=== PATIENT | male | born 1925 | race Caucasian/White ===

== ENCOUNTER 2016-10-15 21:22 | Emergency (ER) | payer MEDICARE, BC ==
--- NOTE | 2016-10-15 21:42 | ED ---
General Adult HPI - General Chief complaint: Chest Pain Stated complaint: Chest Pain Time Seen by Provider: 10/15/16 21:27 Source: patient, family, RN notes reviewed, old records reviewed Mode of arrival: wheelchair Limitations: no limitations - History of Present Illness Initial comments: This is an 89-year-old male the ER for evaluation. Patient presents here for evaluation of chest pain. Patient had just male sitting in a chair but more so just little discomfort, symptoms also resolved we did take his blood pressure nauseous blood pressure was little elevated, patient does admit to mild anxiety. Patient does have significant coronary artery disease, symptoms resolved raking the ER for evaluation, states he wanted an EKG, patient states he does not want his other testing and blood work. At this time patient is without chest pain no shortness breath no cough or congestion. - Related Data Home Medications Medication Instructions Recorded Confirmed ALPRAZolam [Xanax] 0.5 mg PO BID PRN 07/07/16 10/15/16 Allopurinol 100 mg PO DAILY 07/07/16 10/15/16 Clopidogrel Bisulfate [Plavix] 75 mg PO DAILY 07/07/16 10/15/16 Lisinopril 10 mg PO DAILY 07/07/16 10/15/16 Nitroglycerin Sl Tabs [Nitrostat] 0.4 mg SUBLINGUAL Q5M PRN 08/31/16 10/15/16 Aspirin/Sod Bicarb/Citric Acid 2 tab PO Q4H PRN 10/15/16 10/15/16 [[place] Original Tab Eff] Gabapentin [Neurontin] 600 mg PO Q4H 10/15/16 10/15/16 Allergies Allergy/AdvReac Type Severity Reaction Status Date / Time No Known Allergies Allergy Verified 10/15/16 22:00 Review of Systems ROS Statement: Those systems with pertinent positive or pertinent negative responses have been documented in the HPI. ROS Other: All systems not noted in ROS Statement are negative. Past Medical History Past Medical History: Coronary Artery Disease (CAD), Cancer, Chest Pain / Angina , Eye Disorder, Hearing Disorder / Deafness, Hyperlipidemia, Hypertension Additional Past Medical History / Comment(s): HX PROSTATE CA 1995; MELANOMA SKIN. HX DETACHED RETINA'S CANDI. CANDI GLAUCOMA. GOUT. 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 CMP; HAS DEPLETED GENERATOR IN PACEMAKER, [employer]. History of Any Multi-Drug Resistant Organisms: None Reported Past Surgical History: Coronary Bypass/CABG, Heart Catheterization With Stent, Hernia Repair, Pacemaker, Prostate Surgery Additional Past Surgical History / Comment(s): RT CAROTID ARTERY OR. TRIPLE BYPASS 1994. STENTS X4, DONE 2 AT A TIME. REPAIR AORTIC ANEURYSM 2004. Past Anesthesia/Blood Transfusion Reactions: No Reported Reaction Date of Last Stent Placement:: 2004 Type of Cardiac Device: Permanent Pacemaker Device Placement Date:: 2005 Past Psychological History: Anxiety Additional Psychological History / Comment(s): OCC Smoking Status: Former smoker Past Alcohol Use History: None Reported Additional Past Alcohol Use History / Comment(s): SMOKED 30 YEARS, <1PPD, QUIT 1981. Past Drug Use History: None Reported - Past Family History Mother Family Medical History: Cancer Sister(s) Family Medical History: Cancer General Exam Limitations: no limitations General appearance: alert, in no apparent distress Head exam: Present: atraumatic, normocephalic, normal inspection Eye exam: Present: normal appearance, PERRL, EOMI. Absent: scleral icterus, conjunctival injection, periorbital swelling ENT exam: Present: normal exam, mucous membranes moist Neck exam: Present: normal inspection. Absent: tenderness, meningismus, lymphadenopathy Respiratory exam: Present: normal lung sounds bilaterally. Absent: respiratory distress, wheezes, rales, rhonchi, stridor Cardiovascular Exam: Present: regular rate, normal rhythm, normal heart sounds. Absent: systolic murmur, diastolic murmur, rubs, gallop, clicks GI/Abdominal exam: Present: soft, normal bowel sounds. Absent: distended, tenderness, guarding, rebound, rigid Extremities exam: Present: normal inspection, full ROM, normal capillary refill. Absent: tenderness, pedal edema, joint swelling, calf tenderness Back exam: Present: normal inspection Neurological exam: Present: alert, oriented X3, CN II-XII intact Psychiatric exam: Present: normal affect, normal mood Skin exam: Present: warm, dry, intact, normal color. 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 Symptoms all resolved, patient encouraged to stay in hospital for cardiac observation, patient refusing says he feels fine and wants to go home. Patient understands risks of going home, - Lab Data Result diagrams: 10/15/16 22:05 10/15/16 22:05 Lab Results 10/15/16 10/15/16 10/15/16 Range/Units 22:05 22:05 22:05 WBC 5.0 (3.8-10.6) k/uL RBC 4.09 L (4.30-5.90) m/uL Hgb 12.3 L (13.0-17.5) gm/dL Hct 37.8 L (39.0-53.0) % MCV 92.5 (80.0-100.0) fL MCH 30.2 (25.0-35.0) pg MCHC 32.6 (31.0-37.0) g/dL RDW 13.6 (11.5-15.5) % Plt Count 155 (150-450) k/uL Neutrophils % 61 % Lymphocytes % 25 % Monocytes % 8 % Eosinophils % 3 % Basophils % 1 % Neutrophils # 3.0 (1.3-7.7) k/uL Lymphocytes # 1.3 (1.0-4.8) k/uL Monocytes # 0.4 (0-1.0) k/uL Eosinophils # 0.2 (0-0.7) k/uL Basophils # 0.0 (0-0.2) k/uL PT (9.0-12.0) sec INR (<1.1) APTT (22.0-30.0) sec Sodium 147 H (137-145) mmol/L Potassium 4.5 (3.5-5.1) mmol/L Chloride 108 H (98-107) mmol/L Carbon Dioxide 27 (22-30) mmol/L Anion Gap 12 mmol/L BUN 49 H (9-20) mg/dL Creatinine 1.76 H (0.66-1.25) mg/dL Est GFR (MDRD) Af Amer 44 (>60 ml/min/1.73 sqM) Est GFR (MDRD) Non-Af 37 (>60 ml/min/1.73 sqM) Glucose 95 (74-99) mg/dL Calcium 9.4 (8.4-10.2) mg/dL Magnesium 1.7 (1.6-2.3) mg/dL Total Bilirubin 0.4 (0.2-1.3) mg/dL AST 15 L (17-59) U/L ALT 21 (21-72) U/L Alkaline Phosphatase 48 (38-126) U/L Total Creatine Kinase 40 L (55-170) U/L CK-MB (CK-2) 1.7 (0.0-2.4) ng/mL CK-MB (CK-2) Rel Index 4.3 Troponin I <0.012 (0.000-0.034) ng/mL NT-Pro-B Natriuret Pep pg/mL Total Protein 7.0 (6.3-8.2) g/dL Albumin 4.0 (3.5-5.0) g/dL Lipase 140 (23-300) U/L 10/15/16 10/15/16 Range/Units 22:05 22:05 WBC (3.8-10.6) k/uL RBC (4.30-5.90) m/uL Hgb (13.0-17.5) gm/dL Hct (39.0-53.0) % MCV (80.0-100.0) fL MCH (25.0-35.0) pg MCHC (31.0-37.0) g/dL RDW (11.5-15.5) % Plt Count (150-450) k/uL Neutrophils % % Lymphocytes % % Monocytes % % Eosinophils % % Basophils % % Neutrophils # (1.3-7.7) k/uL Lymphocytes # (1.0-4.8) k/uL Monocytes # (0-1.0) k/uL Eosinophils # (0-0.7) k/uL Basophils # (0-0.2) k/uL PT 10.8 (9.0-12.0) sec INR 1.1 (<1.1) APTT 23.1 (22.0-30.0) sec Sodium (137-145) mmol/L Potassium (3.5-5.1) mmol/L Chloride (98-107) mmol/L Carbon Dioxide (22-30) mmol/L Anion Gap mmol/L BUN (9-20) mg/dL Creatinine (0.66-1.25) mg/dL Est GFR (MDRD) Af Amer (>60 ml/min/1.73 sqM) Est GFR (MDRD) Non-Af (>60 ml/min/1.73 sqM) Glucose (74-99) mg/dL Calcium (8.4-10.2) mg/dL Magnesium (1.6-2.3) mg/dL Total Bilirubin (0.2-1.3) mg/dL AST (17-59) U/L ALT (21-72) U/L Alkaline Phosphatase (38-126) U/L Total Creatine Kinase (55-170) U/L CK-MB (CK-2) (0.0-2.4) ng/mL CK-MB (CK-2) Rel Index Troponin I (0.000-0.034) ng/mL NT-Pro-B Natriuret Pep 289 pg/mL Total Protein (6.3-8.2) g/dL Albumin (3.5-5.0) g/dL Lipase (23-300) U/L - Radiology Data Radiology results: report reviewed (Chest x-ray 2 view negative for acute disease), image reviewed Disposition Clinical Impression: Chest pain, Atypical chest pain Disposition: HOME SELF-CARE Condition: Good Instructions: Chest Pain (ED) Referrals: Wilber Ervin MD [Primary Care Provider] - 1-2 days
[2016-10-15 22:15] LABS: Basophils % (A) 1 %; CH 31.7; CHCM 34.4; Eosinophils # (A) 0.2 k/uL (0-0.7); Eosinophils % (A) 3 %; HCT 37.8 % (39.0-53.0); HDW 2.85; HGB 12.3 gm/dL (13.0-17.5); Luc % (Auto) 2; Lymphocytes # (A) 1.3 k/uL (1.0-4.8); Lymphocytes % (A) 25 %; MCH 30.2 pg (25.0-35.0); MCHC 32.6 g/dL (31.0-37.0); MCV 92.5 fL (80.0-100.0); Mean Platelet Volume 8.1; Monocytes # (A) 0.4 k/uL (0-1.0); Monocytes % (A) 8 %; Neutrophils % (A) 61 %; RBC 4.09 m/uL (4.30-5.90); RDW 13.6 % (11.5-15.5); WBC (Perox) 5.04
[2016-10-15 22:24] LABS: INR 1.1 (<1.1); Partial Thromboplastin Time 23.1 sec (22.0-30.0); Prothrombin Time 10.8 sec (9.0-12.0)
[2016-10-15 22:30] LABS: Calcium 9.4 mg/dL (8.4-10.2); Magnesium 1.7 mg/dL (1.6-2.3); Potassium 4.5 mmol/L (3.5-5.1); Total Bilirubin 0.4 mg/dL (0.2-1.3)
[2016-10-15 22:34] LABS: Creatine Kinase 40 U/L (55-170)
[2016-10-15 22:47] LABS: Creatine Kinase MB 1.7 ng/mL (0.0-2.4); Troponin I <0.012 ng/mL (0.000-0.034)
--- NOTE | 2016-10-15 23:03 | XR ---
EXAMINATION TYPE: XR chest 2V DATE OF EXAM: 10/15/2016 10:18 PM COMPARISON: 07/07/2016 HISTORY: Chest pain TECHNIQUE: Frontal and lateral views of the chest are obtained. FINDINGS: There is no focal air space opacity, pleural effusion, or pneumothorax seen. Heart is not enlarged. Thoracic aorta is tortuous and ectatic with aneurysmal dilatation with atheros clerotic calcification without significant change. Left-sided pacemaker and postsurgical changes of s ternotomy are noted. Mild to moderate degenerative arthritic changes are present in the thoracic spine with endplate spond ylosis with old mild wedge compression deformities of lower thoracic vertebrae. IMPRESSION: 1. No active pulmonary infiltrates. 2. No significant interval change. 3. 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 Sternotomy and pacemaker.
[2016-10-15 23:48] VITALS: BP 177/93; PULSE 73; RESP 18; TEMP 98.7
== END 2016-10-15 23:48 | disposition home or self-care (01) ==
LOC: EC 21:22
DX: R07.89 Other chest pain (principal); I10 Essential (primary) hypertension; I25.10 Atherosclerotic heart disease of native coronary artery without angina pectoris; M10.9 Gout, unspecified; H91.90 Unspecified hearing loss, unspecified ear; G62.9 Polyneuropathy, unspecified; Z79.02 Long term (current) use of antithrombotics/antiplatelets; Z87.891 Personal history of nicotine dependence; Z79.899 Other long term (current) drug therapy; Z95.0 Presence of cardiac pacemaker; Z95.1 Presence of aortocoronary bypass graft; Z95.5 Presence of coronary angioplasty implant and graft
CPT/HCPCS: 36415; 71020; 80051; 80053; 82550; 82553; 82565; 83690; 83735; 83880; 84484; 84520; 85025; 85610; 85730; 93005; 99285

== ENCOUNTER 2016-10-18 19:02 | Emergency (ER) | payer MEDICARE, BC ==
[2016-10-18 19:14] VITALS: RESP 18
[2016-10-18] MEDS ORDERED: LORazepam 2 MG/ML SYRINGE IV STA (19:22)
[2016-10-18] MEDS ORDERED: LABETALOL SYRINGE 5 MG/ML IVP STA (19:22)
--- NOTE | 2016-10-18 19:23 | ED ---
General Adult HPI - General Chief complaint: Chest Pain Stated complaint: HTN Time Seen by Provider: 10/18/16 19:08 Source: patient, RN notes reviewed, old records reviewed Mode of arrival: ambulatory Limitations: no limitations - History of Present Illness Initial comments: This is a 11-year-old male here for evaluation of chest pain. Patient has medical history is significant for coronary disease, multiple medical comorbidities. I and heart disease. Patient coming in for evaluation of chest pain started in her right afternoon and lasted for a few seconds and then resolve. Patient not specifically concerned about pain B[place]ill numbers were. Patient's no nausea vomiting, no with antiacids. No significant shortness of breath. Patient did not take anything for the pain, no nitro. Patient has again no fevers workup congestion, no recent travel history. Patient remains without chest pain at this time - Related Data Home Medications Medication Instructions Recorded Confirmed ALPRAZolam [Xanax] 0.5 mg PO BID PRN 07/07/16 10/18/16 Allopurinol 100 mg PO DAILY 07/07/16 10/18/16 Clopidogrel Bisulfate [Plavix] 75 mg PO DAILY 07/07/16 10/18/16 Lisinopril 10 mg PO DAILY 07/07/16 10/18/16 Nitroglycerin Sl Tabs [Nitrostat] 0.4 mg SUBLINGUAL Q5M PRN 08/31/16 10/18/16 Gabapentin [Neurontin] 600 mg PO Q4H 10/15/16 10/18/16 Allergies Allergy/AdvReac Type Severity Reaction Status Date / Time No Known Allergies Allergy Verified 10/18/16 19:14 Review of Systems ROS Statement: Those systems with pertinent positive or pertinent negative responses have been documented in the HPI. ROS Other: All systems not noted in ROS Statement are negative. Past Medical History Past Medical History: Coronary Artery Disease (CAD), Cancer, Chest Pain / Angina , Eye Disorder, Hearing Disorder / Deafness, Hyperlipidemia, Hypertension Additional Past Medical History / Comment(s): HX PROSTATE CA 1995; MELANOMA SKIN. HX DETACHED RETINA'S CANDI. CANDI GLAUCOMA. GOUT. 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 CMP; HAS DEPLETED GENERATOR IN PACEMAKER, [employer]. History of Any Multi-Drug Resistant Organisms: None Reported Past Surgical History: Coronary Bypass/CABG, Heart Catheterization With Stent, Hernia Repair, Pacemaker, Prostate Surgery Additional Past Surgical History / Comment(s): RT CAROTID ARTERY OR. TRIPLE BYPASS 1994. STENTS X4, DONE 2 AT A TIME. REPAIR AORTIC ANEURYSM 2004. Past Anesthesia/Blood Transfusion Reactions: No Reported Reaction Date of Last Stent Placement:: 2004 Type of Cardiac Device: Permanent Pacemaker Device Placement Date:: 2005 Past Psychological History: Anxiety Additional Psychological History / Comment(s): OCC Smoking Status: Former smoker Past Alcohol Use History: None Reported Additional Past Alcohol Use History / Comment(s): SMOKED 30 YEARS, <1PPD, QUIT 1981. Past Drug Use History: None Reported - Past Family History Mother Family Medical History: Cancer Sister(s) Family Medical History: Cancer General Exam Limitations: no limitations General appearance: alert, in no apparent distress Head exam: Present: atraumatic, normocephalic, normal inspection Eye exam: Present: normal appearance, PERRL, EOMI. Absent: scleral icterus, conjunctival injection, periorbital swelling ENT exam: Present: normal exam, mucous membranes moist Neck exam: Present: normal inspection. Absent: tenderness, meningismus, lymphadenopathy Respiratory exam: Present: normal lung sounds bilaterally. Absent: respiratory distress, wheezes, rales, rhonchi, stridor Cardiovascular Exam: Present: regular rate, normal rhythm, normal heart sounds. Absent: systolic murmur, diastolic murmur, rubs, gallop, clicks GI/Abdominal exam: Present: soft, normal bowel sounds. Absent: distended, tenderness, guarding, rebound, rigid Extremities exam: Present: normal inspection, full ROM, normal capillary refill. Absent: tenderness, pedal edema, joint swelling, calf tenderness Back exam: Present: normal inspection Neurological exam: Present: alert, oriented X3, CN II-XII intact Psychiatric exam: Present: normal affect, normal mood Skin exam: Present: warm, dry, intact, normal color. Absent: rash Course Vital Signs 10/18/16 10/18/16 10/18/16 19:11 20:14 20:25 Temperature 98.6 F 98.7 F Pulse Rate 60 65 62 Respiratory 18 18 18 Rate Blood Pressure 223/91 201/85 145/65 O2 Sat by Pulse 97 97 98 Oximetry 10/18/16 21:09 Temperature 98 F Pulse Rate 69 Respiratory 18 Rate Blood Pressure 123/71 O2 Sat by Pulse 97 Oximetry EKG Findings - EKG Comments: EKG Findings:: EKG shows paced rhythm rate of 60, pO2 30, QRS 94, QTC 400 Medical Decision Making - Medical Decision Making In eye male here for evaluation of chest pain, patient's chest pain is atypical in nature and resolved, patient states he feels good feels better like to be discharged home. - Lab Data Result diagrams: 10/18/16 19:18 10/18/16 19:18 Lab Results 10/18/16 10/18/16 10/18/16 Range/Units 19:18 19:18 19:18 WBC 4.7 (3.8-10.6) k/uL RBC 4.00 L (4.30-5.90) m/uL Hgb 12.4 L (13.0-17.5) gm/dL Hct 38.1 L (39.0-53.0) % MCV 95.1 (80.0-100.0) fL MCH 31.0 (25.0-35.0) pg MCHC 32.6 (31.0-37.0) g/dL RDW 13.6 (11.5-15.5) % Plt Count 157 (150-450) k/uL Neutrophils % 62 % Lymphocytes % 24 % Monocytes % 8 % Eosinophils % 3 % Basophils % 0 % Neutrophils # 3.0 (1.3-7.7) k/uL Lymphocytes # 1.2 (1.0-4.8) k/uL Monocytes # 0.4 (0-1.0) k/uL Eosinophils # 0.1 (0-0.7) k/uL Basophils # 0.0 (0-0.2) k/uL PT (9.0-12.0) sec INR (<1.1) APTT (22.0-30.0) sec Sodium 145 (137-145) mmol/L Potassium 5.1 (3.5-5.1) mmol/L Chloride 106 (98-107) mmol/L Carbon Dioxide 27 (22-30) mmol/L Anion Gap 12 mmol/L BUN 40 H (9-20) mg/dL Creatinine 1.87 H (0.66-1.25) mg/dL Est GFR (MDRD) Af Amer 41 (>60 ml/min/1.73 sqM) Est GFR (MDRD) Non-Af 34 (>60 ml/min/1.73 sqM) Glucose 106 H (74-99) mg/dL Calcium 9.5 (8.4-10.2) mg/dL Magnesium 1.7 (1.6-2.3) mg/dL Total Bilirubin 0.4 (0.2-1.3) mg/dL AST 18 (17-59) U/L ALT 24 (21-72) U/L Alkaline Phosphatase 52 (38-126) U/L Total Creatine Kinase 40 L (55-170) U/L CK-MB (CK-2) 1.4 (0.0-2.4) ng/mL CK-MB (CK-2) Rel Index 3.5 Troponin I <0.012 (0.000-0.034) ng/mL NT-Pro-B Natriuret Pep pg/mL Total Protein 7.1 (6.3-8.2) g/dL Albumin 4.0 (3.5-5.0) g/dL Lipase 125 (23-300) U/L 10/18/16 10/18/16 Range/Units 19:18 19:18 WBC (3.8-10.6) k/uL RBC (4.30-5.90) m/uL Hgb (13.0-17.5) gm/dL Hct (39.0-53.0) % MCV (80.0-100.0) fL MCH (25.0-35.0) pg MCHC (31.0-37.0) g/dL RDW (11.5-15.5) % Plt Count (150-450) k/uL Neutrophils % % Lymphocytes % % Monocytes % % Eosinophils % % Basophils % % Neutrophils # (1.3-7.7) k/uL Lymphocytes # (1.0-4.8) k/uL Monocytes # (0-1.0) k/uL Eosinophils # (0-0.7) k/uL Basophils # (0-0.2) k/uL PT 10.8 (9.0-12.0) sec INR 1.1 (<1.1) APTT 22.8 (22.0-30.0) sec Sodium (137-145) mmol/L Potassium (3.5-5.1) mmol/L Chloride (98-107) mmol/L Carbon Dioxide (22-30) mmol/L Anion Gap mmol/L BUN (9-20) mg/dL Creatinine (0.66-1.25) mg/dL Est GFR (MDRD) Af Amer (>60 ml/min/1.73 sqM) Est GFR (MDRD) Non-Af (>60 ml/min/1.73 sqM) Glucose (74-99) mg/dL Calcium (8.4-10.2) mg/dL Magnesium (1.6-2.3) mg/dL Total Bilirubin (0.2-1.3) mg/dL AST (17-59) U/L ALT (21-72) U/L Alkaline Phosphatase (38-126) U/L Total Creatine Kinase (55-170) U/L CK-MB (CK-2) (0.0-2.4) ng/mL CK-MB (CK-2) Rel Index Troponin I (0.000-0.034) ng/mL NT-Pro-B Natriuret Pep 228 pg/mL Total Protein (6.3-8.2) g/dL Albumin (3.5-5.0) g/dL Lipase (23-300) U/L - Radiology Data Radiology results: report reviewed (Chest x-ray 2 view negative for acute disease), image reviewed Disposition Clinical Impression: Chest pain, Atypical chest pain Disposition: HOME SELF-CARE Condition: Good Instructions: Costochondritis (ED), Chest Pain (ED) Referrals: Wilber Ervin MD [Primary Care Provider] - 1-2 days
[2016-10-18 19:29] LABS: Basophils % (A) 0 %; CHCM 33.8; Eosinophils # (A) 0.1 k/uL (0-0.7); Eosinophils % (A) 3 %; HCT 38.1 % (39.0-53.0); HDW 2.76; HGB 12.4 gm/dL (13.0-17.5); Luc # (Auto) 0.11; Luc % (Auto) 2; Lymphocytes # (A) 1.2 k/uL (1.0-4.8); Lymphocytes % (A) 24 %; MCHC 32.6 g/dL (31.0-37.0); MCV 95.1 fL (80.0-100.0); Mean Platelet Volume 8.3; Monocytes # (A) 0.4 k/uL (0-1.0); Monocytes % (A) 8 %; Neutrophils % (A) 62 %; RDW 13.6 % (11.5-15.5); WBC 4.7 k/uL (3.8-10.6); WBC (Perox) 4.67
[2016-10-18 19:39] LABS: Calcium 9.5 mg/dL (8.4-10.2); Magnesium 1.7 mg/dL (1.6-2.3); Potassium 5.1 mmol/L (3.5-5.1); Total Bilirubin 0.4 mg/dL (0.2-1.3); Total Protein 7.1 g/dL (6.3-8.2)
[2016-10-18 19:48] LABS: Creatine Kinase 40 U/L (55-170)
--- NOTE | 2016-10-18 19:55 | XR ---
EXAMINATION TYPE: XR chest 2V DATE OF EXAM: 10/18/2016 7:50 PM COMPARISON: 10/15/2016 HISTORY: Chest pain TECHNIQUE: Frontal and lateral views of the chest are obtained. FINDINGS: There is no heart failure nor confluent pneumonic infiltrate. Thoracic aorta is atheromato us. There is a left axillary pacemaker with the lead tips in the right ventricle. There are sternal w ires. There are chest leads. There is no sign of pleural effusion. Bony thorax is intact. IMPRESSION: Atheromatous aorta. No active cardiopulmonary disease. No change.
[2016-10-18 20:01] LABS: Creatine Kinase MB 1.4 ng/mL (0.0-2.4); Troponin I <0.012 ng/mL (0.000-0.034)
[2016-10-18 20:08] LABS: INR 1.1 (<1.1); Partial Thromboplastin Time 22.8 sec (22.0-30.0); Prothrombin Time 10.8 sec (9.0-12.0)
[2016-10-18 21:10] VITALS: BP 123/71; PULSE 69; TEMP 98
== END 2016-10-18 21:12 | disposition home or self-care (01) ==
LOC: EC 19:02
DX: R07.89 Other chest pain (principal); I10 Essential (primary) hypertension; I25.10 Atherosclerotic heart disease of native coronary artery without angina pectoris; F41.9 Anxiety disorder, unspecified; H91.90 Unspecified hearing loss, unspecified ear; Z85.46 Personal history of malignant neoplasm of prostate; Z85.820 Personal history of malignant melanoma of skin; M10.9 Gout, unspecified; G62.9 Polyneuropathy, unspecified; Z79.02 Long term (current) use of antithrombotics/antiplatelets; Z79.899 Other long term (current) drug therapy; Z95.0 Presence of cardiac pacemaker; Z95.5 Presence of coronary angioplasty implant and graft; Z95.1 Presence of aortocoronary bypass graft; Z87.891 Personal history of nicotine dependence
CPT/HCPCS: 99285; 96374; 96375; 36415; 93005; 83880; 80053; 82550; 82553; 83690; 83735; 84484; 85025; 85610; 85730; 71020; J2060

== ENCOUNTER → 2016-10-23 | Outpatient (CLI) | payer MEDICARE, BC ==
--- NOTE | 2016-10-23 10:28 | US ---
EXAMINATION TYPE: US carotid duplex BILAT DATE OF EXAM: 10/23/2016 10:02 AM COMPARISON: NONE CLINICAL HISTORY: US. Carotid bruit, right endarterectomy 32 years ago EXAM MEASUREMENTS: RIGHT: Peak Systolic Velocity (PSV) cm/sec ----- Right CCA: 153.0 ----- Right ICA: 200.0 ----- Right ECA: 81.1 ICA/CCA ratio: 1.3 RIGHT: End Diastole cm/sec ----- Right CCA: 60.3 ----- Right ICA: 76.2 ----- Right ECA: 11.1 LEFT: Peak Systolic Velocity (PSV) cm/sec ----- Left CCA: 94.1 ----- Left ICA: 158.9 ----- Left ECA: 147.1 ICA/CCA ratio: 1.7 LEFT: End Diastole cm/sec ----- Left CCA: 29.3 ----- Left ICA: 50.5 ----- Left ECA: 17.0 VERTEBRALS (direction of flow): Right Vertebral: Antegrade Left Vertebral: Antegrade IMPRESSION: Moderate plaque noted bilateral bifurcations. Increased velocities right distal CCA, ri ght bulb, right ICA, Left ICA Criteria for Assigning % of Stenosis / Diameter reduction (Estimation based on the indirect measurements of the internal carotid artery velocities (ICA PSV). 1. Normal (no stenosis)=ICA PSV < 125 cm/s: ratio < 2.0: ICA EDV<40 cm/s. 2. Less than 50% stenosis=ICA PSV < 125 cm/s: ratio < 2.0: ICA EDV<40 cm/s. 3. 50 to 69% stenosis=ICA PSV of 125 to 230 cm/s: ration 2.0 ? 4.0: ICA EDV 40-100 cm/s. 4. Greater than 70% stenosis to near occlusion= ICA PSV > 230 cm/s: ratio > 4.0: ICA EDV > 100 cm/s. 5. Near occlusion= ICA PSV velocities may be low or undetectable: variable ratio and ICA EDV. 6. Total occlusion=unable to detect flow.
--- NOTE | 2016-10-23 10:29 | US ---
EXAMINATION TYPE: US duplex aorta DATE OF EXAM: 10/23/2016 9:42 AM COMPARISON: NONE CLINICAL HISTORY: US. History of AAA, repair 2006 EXAM MEASUREMENTS: Abdominal Aorta: Proximal: 2.2 x 2.3cm Mid: 2.5 x 2.6cm Distal: 3.2 x 3.0cm Bifurcation: RT: 1.3 x 1.2cm LT: 1.4 x 1.4cm IMPRESSION: *Portions obscured by overlying bowel content. Anechoic area anterior to bifurcation, ? possible post surgical changes vs. other etiology Normal Values: 2.5cm upper limits for normal at upper portion 1.5cm upper limits for normal at iliac More than 2.5cm is ectatic and 3.0cm+ is aneurysmal. Abdominal Aortic Aneurysms: 3.0-3.9cm diameter: annual US surveillance recommended 4.0-4.9cm diameter: 6 month US surveillance recommended 5.0 +cm: recommendation for elective aneurysm repair in appropriate surgical candidate
== END | disposition home or self-care (01) ==
LOC: RADUSWWP 09:21
PROVIDERS: ATTEND Family Medicine
DX: I65.23 Occlusion and stenosis of bilateral carotid arteries (principal); R09.89 Other specified symptoms and signs involving the circulatory and respiratory systems
CPT/HCPCS: 93880; 93979

== ENCOUNTER 2016-11-24 08:55 | Observation (INO) | payer MEDICARE, BC ==
[2016-11-24] MEDS ORDERED: NITROGLYCERIN OINT 1 INCH/GM PACKET TOPICAL STA (09:19)
[2016-11-24] MEDS ORDERED: NITROGLYCERIN SL TABS 0.4 MG TAB SUBLINGUAL STA (09:19)
[2016-11-24] MEDS ORDERED: ASPIRIN 81 MG CHEW PO STA (09:19)
--- NOTE | 2016-11-24 09:22 | ED ---
General Adult HPI - General Chief complaint: Chest Pain Stated complaint: Chest Pain Time Seen by Provider: 11/24/16 09:05 Source: patient, RN notes reviewed Mode of arrival: wheelchair Limitations: no limitations - History of Present Illness Initial comments: This is an 89-year-old male who presents to the emergency department complaining of chest pain. She states it started 6 got this morning. Patient states across his whole chest and into his right shoulder. Patient denies any difficulty breathing or shortness of breath. Patient denies any diaphoresis. Patient denies any nausea or vomiting. Patient denies abdominal pain. Patient states the chest pain is still there but is more of a tightness now but the shoulder pain continues. Patient denies any recent fever chills or cough. Patient states he does have a history of bypass surgery as well as his multiple stents. Patient denies any headache patient denies numbness weakness. Patient denies any syncope or near syncopal episodes. Patient denies lightheadedness or dizziness. Patient denies any recent injury or trauma. Patient denies any back pain. - Related Data Home Medications Medication Instructions Recorded Confirmed ALPRAZolam [Xanax] 0.5 mg PO BID PRN 07/07/16 11/24/16 Allopurinol 100 mg PO DAILY 07/07/16 11/24/16 Clopidogrel Bisulfate [Plavix] 75 mg PO DAILY 07/07/16 11/24/16 Lisinopril 10 mg PO DAILY 07/07/16 11/24/16 Nitroglycerin Sl Tabs [Nitrostat] 0.4 mg SUBLINGUAL Q5M PRN 08/31/16 11/24/16 Gabapentin [Neurontin] 600 mg PO Q4H 10/15/16 11/24/16 Allergies Allergy/AdvReac Type Severity Reaction Status Date / Time No Known Allergies Allergy Verified 11/24/16 10:28 Review of Systems ROS Statement: Those systems with pertinent positive or pertinent negative responses have been documented in the HPI. ROS Other: All systems not noted in ROS Statement are negative. Past Medical History Past Medical History: Coronary Artery Disease (CAD), Cancer, Chest Pain / Angina , Eye Disorder, Hearing Disorder / Deafness, Hyperlipidemia, Hypertension Additional Past Medical History / Comment(s): HX PROSTATE CA 1995; MELANOMA SKIN. HX DETACHED RETINA'S CANDI. CANDI GLAUCOMA. GOUT. 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 CMP; HAS DEPLETED GENERATOR IN PACEMAKER, [employer]. History of Any Multi-Drug Resistant Organisms: None Reported Past Surgical History: Coronary Bypass/CABG, Heart Catheterization With Stent, Hernia Repair, Pacemaker, Prostate Surgery Additional Past Surgical History / Comment(s): RT CAROTID ARTERY OR. TRIPLE BYPASS 1994. STENTS X4, DONE 2 AT A TIME. REPAIR AORTIC ANEURYSM 2004. Past Anesthesia/Blood Transfusion Reactions: No Reported Reaction Date of Last Stent Placement:: 2004 Type of Cardiac Device: Permanent Pacemaker Device Placement Date:: 2005 Past Psychological History: Anxiety Additional Psychological History / Comment(s): OCC Smoking Status: Former smoker Past Alcohol Use History: None Reported Additional Past Alcohol Use History / Comment(s): SMOKED 30 YEARS, <1PPD, QUIT 1981. Past Drug Use History: None Reported - Past Family History Mother Family Medical History: Cancer Sister(s) Family Medical History: Cancer General Exam - General Exam Comments Initial Comments: GENERAL: Patient is well-developed and well-nourished. Patient is nontoxic and well- hydrated and is in mild distress. ENT: Neck is soft and supple. No significant lymphadenopathy is noted. Oropharynx is clear. Moist mucous membranes. Neck has full range of motion without eliciting any pain. EYES: The sclera were anicteric and conjunctiva were pink and moist. Extraocular movements were intact and pupils were equal round and reactive to light. Eyelids were unremarkable. PULMONARY: Unlabored respirations. Good breath sounds bilaterally. No audible rales rhonchi or wheezing was noted. CARDIOVASCULAR: There is a regular rate and rhythm without any murmurs gallops or rubs. ABDOMEN: Soft and nontender with normal bowel sounds. No palpable organomegaly was noted. There is no palpable pulsatile mass. SKIN: Skin is clear with no lesions or rashes and otherwise unremarkable. NEUROLOGIC: Patient is alert and oriented x3. Cranial nerves II through XII are grossly intact. Motor and sensory are also intact. Normal speech, volume and content. Symmetrical smile. Cerebellar exam grossly intact. MUSCULOSKELETAL: Normal extremities with adequate strength and full range of motion. No lower extremity swelling or edema. No calf tenderness. LYMPHATICS: No significant lymphadenopathy is noted PSYCHIATRIC: Normal psychiatric evaluation. Normal interpersonal interactions appears functionally intact in deals appropriately with others. No signs of depression. No signs of anxiety Limitations: no limitations Course Vital Signs 11/24/16 11/24/16 11/24/16 09:02 09:23 09:33 Temperature 97.2 F L Pulse Rate 78 60 84 Respiratory 18 16 18 Rate Blood Pressure 185/132 169/80 177/84 O2 Sat by Pulse 97 97 97 Oximetry Medical Decision Making - Medical Decision Making EKG shows a normal sinus rhythm at 82 bpm [place] interval is 192 QRS is 84 Q-T intervals 460 QTC is 420. Patient's EKG shows no ST segment elevation or depression or T wave abnormalities are noted. Patient's chest x-ray shows no acute abnormality. Patient had chest pain that in combination with radiation to the left shoulder and his hypertensive history as well as his bypass and stenting history I decided to put the patient heparin and admit the patient for unstable angina - Lab Data Result diagrams: 11/24/16 09:10 11/24/16 09:10 Lab Results 11/24/16 11/24/16 11/24/16 Range/Units 09:10 09:10 09:10 WBC 5.2 (3.8-10.6) k/uL RBC 4.01 L (4.30-5.90) m/uL Hgb 12.2 L (13.0-17.5) gm/dL Hct 37.4 L (39.0-53.0) % MCV 93.2 (80.0-100.0) fL MCH 30.3 (25.0-35.0) pg MCHC 32.5 (31.0-37.0) g/dL RDW 13.5 (11.5-15.5) % Plt Count 219 (150-450) k/uL Neutrophils % 69 % Lymphocytes % 21 % Monocytes % 6 % Eosinophils % 2 % Basophils % 0 % Neutrophils # 3.6 (1.3-7.7) k/uL Lymphocytes # 1.1 (1.0-4.8) k/uL Monocytes # 0.3 (0-1.0) k/uL Eosinophils # 0.1 (0-0.7) k/uL Basophils # 0.0 (0-0.2) k/uL PT (9.0-12.0) sec INR (<1.1) APTT (22.0-30.0) sec Sodium 148 H (137-145) mmol/L Potassium 5.0 (3.5-5.1) mmol/L Chloride 109 H (98-107) mmol/L Carbon Dioxide 27 (22-30) mmol/L Anion Gap 12 mmol/L BUN 36 H (9-20) mg/dL Creatinine 1.91 H (0.66-1.25) mg/dL Est GFR (MDRD) Af Amer 40 (>60 ml/min/1.73 sqM) Est GFR (MDRD) Non-Af 33 (>60 ml/min/1.73 sqM) Glucose 111 H (74-99) mg/dL Calcium 9.4 (8.4-10.2) mg/dL Magnesium 1.7 (1.6-2.3) mg/dL Total Bilirubin 0.7 (0.2-1.3) mg/dL AST 17 (17-59) U/L ALT 24 (21-72) U/L Alkaline Phosphatase 51 (38-126) U/L Total Creatine Kinase 36 L (55-170) U/L CK-MB (CK-2) 1.0 (0.0-2.4) ng/mL CK-MB (CK-2) Rel Index 2.8 Troponin I <0.012 (0.000-0.034) ng/mL Total Protein 7.6 (6.3-8.2) g/dL Albumin 4.1 (3.5-5.0) g/dL 11/24/16 Range/Units 09:10 WBC (3.8-10.6) k/uL RBC (4.30-5.90) m/uL Hgb (13.0-17.5) gm/dL Hct (39.0-53.0) % MCV (80.0-100.0) fL MCH (25.0-35.0) pg MCHC (31.0-37.0) g/dL RDW (11.5-15.5) % Plt Count (150-450) k/uL Neutrophils % % Lymphocytes % % Monocytes % % Eosinophils % % Basophils % % Neutrophils # (1.3-7.7) k/uL Lymphocytes # (1.0-4.8) k/uL Monocytes # (0-1.0) k/uL Eosinophils # (0-0.7) k/uL Basophils # (0-0.2) k/uL PT 10.8 (9.0-12.0) sec INR 1.1 (<1.1) APTT 22.1 (22.0-30.0) sec Sodium (137-145) mmol/L Potassium (3.5-5.1) mmol/L Chloride (98-107) mmol/L Carbon Dioxide (22-30) mmol/L Anion Gap mmol/L BUN (9-20) mg/dL Creatinine (0.66-1.25) mg/dL Est GFR (MDRD) Af Amer (>60 ml/min/1.73 sqM) Est GFR (MDRD) Non-Af (>60 ml/min/1.73 sqM) Glucose (74-99) mg/dL Calcium (8.4-10.2) mg/dL Magnesium (1.6-2.3) mg/dL Total Bilirubin (0.2-1.3) mg/dL AST (17-59) U/L ALT (21-72) U/L Alkaline Phosphatase (38-126) U/L Total Creatine Kinase (55-170) U/L CK-MB (CK-2) (0.0-2.4) ng/mL CK-MB (CK-2) Rel Index Troponin I (0.000-0.034) ng/mL Total Protein (6.3-8.2) g/dL Albumin (3.5-5.0) g/dL Disposition Clinical Impression: Unstable angina pectoris Disposition: ADMITTED IP TO THIS [facility] Time of Disposition: 10:59
[2016-11-24 09:36] LABS: Basophils % (A) 0 %; CH 31.3; CHCM 33.8; Eosinophils # (A) 0.1 k/uL (0-0.7); Eosinophils % (A) 2 %; HCT 37.4 % (39.0-53.0); HGB 12.2 gm/dL (13.0-17.5); Luc # (Auto) 0.06; Luc % (Auto) 1; Lymphocytes # (A) 1.1 k/uL (1.0-4.8); Lymphocytes % (A) 21 %; MCH 30.3 pg (25.0-35.0); MCHC 32.5 g/dL (31.0-37.0); MCV 93.2 fL (80.0-100.0); Monocytes # (A) 0.3 k/uL (0-1.0); Monocytes % (A) 6 %; Neutrophils # (A) 3.6 k/uL (1.3-7.7); Neutrophils % (A) 69 %; RBC 4.01 m/uL (4.30-5.90); RDW 13.5 % (11.5-15.5); WBC 5.2 k/uL (3.8-10.6); WBC (Perox) 5.18
[2016-11-24 09:45] LABS: INR 1.1 (<1.1); Partial Thromboplastin Time 22.1 sec (22.0-30.0); Prothrombin Time 10.8 sec (9.0-12.0)
[2016-11-24 09:47] LABS: Calcium 9.4 mg/dL (8.4-10.2); Magnesium 1.7 mg/dL (1.6-2.3); Total Bilirubin 0.7 mg/dL (0.2-1.3); Total Protein 7.6 g/dL (6.3-8.2)
[2016-11-24 10:19] LABS: Creatine Kinase 36 U/L (55-170)
--- NOTE | 2016-11-24 10:20 | XR ---
EXAMINATION TYPE: XR chest 2V DATE OF EXAM: 11/24/2016 10:07 AM COMPARISON: Prior chest x-ray 18 October 2016 HISTORY: Chest pain TECHNIQUE: Frontal and lateral views of the chest are obtained on 3 images. FINDINGS: Prominent lung volume may be indicative of underlying COPD. Patient is post median sternot yelena, there are leads present in the right atrium and ventricle, generator in the left pectoral region . No evident pneumothorax, pneumonia, or pleural effusion. Cardiac mediastinal silhouette, pulmonary vascularity and carlos are stable. Arthropathy present at the acromioclavicular joints. IMPRESSION: No acute cardiopulmonary process.
[2016-11-24 10:32] LABS: Troponin I <0.012 ng/mL (0.000-0.034)
[2016-11-24] MEDS ORDERED: NITROGLYCERIN SL TABS 0.4 MG TAB SUBLINGUAL PRN (10:59)
[2016-11-24] MEDS ORDERED: ALPRAZolam 0.5 MG TAB PO PRN (15:07)
[2016-11-24] MEDS: NITROGLYCERIN OINT 1 INCH/GM PACKET TOPICAL SCH ×3 (15:24→23:53)
[2016-11-24] MEDS: GABAPENTIN 300 MG CAP PO SCH ×2 (15:46→20:24)
[2016-11-24 15:58] LABS: Creatine Kinase 29 U/L (55-170)
[2016-11-24 16:09] LABS: Creatine Kinase MB 0.8 ng/mL (0.0-2.4); Troponin I <0.012 ng/mL (0.000-0.034)
[2016-11-24] MEDS: LISINOPRIL 10 MG TAB PO SCH (17:21)
[2016-11-24] MEDS: ALLOPURINOL 100 MG TAB PO SCH (17:21)
[2016-11-24] MEDS: CLOPIDOGREL 75 MG TAB PO SCH (17:22)
[2016-11-24 20:36] LABS: Appearance,Urine Clear (Clear); Bilirubin,Urine Negative (Negative); Glucose,Urine (UA) Negative (Negative); Ketones,Urine Negative (Negative); Leukocyte Esterase,Urine Negative (Negative); Nitrite,Urine Negative (Negative); Particle Count 403; Protein,Urine Negative (Negative); RBC,Urine 55 /hpf (0-5); Specific Gravity,Urine 1.012 (1.001-1.035); Squamous Epithelial Cell,Urine <1 /hpf (0-4); UA Billing (MACRO vs. MICRO) MICRO; Urobilinogen,Urine <2.0 mg/dL (<2.0); WBC,Urine <1 /hpf (0-5)
--- NOTE | 2016-11-24 21:02 | US ---
EXAMINATION TYPE: US kidneys/renal and bladder DATE OF EXAM: 11/24/2016 7:57 PM COMPARISON: NONE CLINICAL HISTORY: hematuria/renal insufficiency. EXAM MEASUREMENTS: Right Kidney: 9.4 x 5.4 x 4.5 cm Left Kidney: 10.7 x 4.6 x 4.3 cm TECHNOLOGIST IMPRESSION: Right Kidney: Loss of corticomedullary differentiation. Multiple cystic areas visualized, largest is seen at the lower pole measuring 4.7 x 4.4 x 3.9 cm Left Kidney: Loss of corticomedullary differentiation. Cyst visualized at the upper pole measuring 4. 7 x 3.9 x 3.2 cm Bladder: wnl Bilateral Jets seen: No, left jet not visualized on this exam Cortical thinning is present bilaterally. Grayscale, color Doppler imaging performed of the kidneys a nd bladder. IMPRESSION: Simple cysts associated with the kidneys. Findings compatible with medical renal disease.
[2016-11-24 21:30] LABS: Creatine Kinase 27 U/L (55-170)
[2016-11-24 21:43] LABS: Creatine Kinase MB 0.8 ng/mL (0.0-2.4); Troponin I <0.012 ng/mL (0.000-0.034)
--- NOTE | 2016-11-24 21:44 | HP ---
DATE OF ADMISSION: CHIEF COMPLAINT: An 89-year-old white male with chest pain. HISTORY OF PRESENT ILLNESS: This is 89-year-old white male presented to the emergency room complaining of some chest pain that started at 6 this morning, went across his chest into his right shoulder. Denies any difficulty breathing or shortness of breath, diaphoresis, nausea, vomiting or abdominal pain. There is more tightness that radiates into the shoulder. Denies any fever, cough or chills. Last stress test was 3 years ago. He has a history of bypass surgery and multiple stents. No syncope. No dizziness. No recent trauma. Medications include: 1. Xanax. 2. Allopurinol. 3. Plavix. 4. Lisinopril. 5. Nitrostat. PAST MEDICAL HISTORY: 1. Coronary artery disease. 2. Cancer. 3. Chest pain, angina. 4. Hearing disorder. 5. Eye disorder. 6. Deafness. 7. Dyslipidemia. 8. Hypertension. 9. History of prostate cancer. 10. Melanoma of the skin. 11. Detached retinas. 12. Bilateral glaucoma. 13. Gout. 14. Neuropathy, feet to knees. 15. ( ) generator and pacemaker [employer]. 16. Heart catheterization with stent. 17. CABG. 18. Hernia repair. 19. Pacemaker. 20. Prostate surgery. 21. Carotid endarterectomy. 22. Triple bypass ( ) x4. 23. Repaired aortic aneurysm 2004. PSYCH HISTORY: Anxiety. Former smoker; 1 pack a day for 30 years; quit in 1981. Mother with cancer. Sisters cancer. PHYSICAL EXAM: VITAL SIGNS: Stable, afebrile. CARDIOVASCULAR: S1, S2. LUNGS: Clear. GI: Soft. HEMATOLOGIC: Negative Homans. PSYCHIATRIC: Fair mood and affect. NEUROLOGIC: Alert and oriented x3. SKIN: Warm, dry, intact. NEUROLOGIC: Alert and oriented x3. : No suprapubic tenderness. Temperature 97.2, pulse 84, respiratory rate 16 to 18. Blood pressure was 69 to 185 over 80 to 132. Oxygen saturation 97% on room air. EKG sinus rhythm. Chest x-ray is negative. Labs were reviewed. Hemoglobin 12.2. ASSESSMENT: 1. Hematuria. 2. Unstable angina pectoris. CPK x3 were done. Stress test will be done in the morning. Ultrasound of kidneys. Recheck urine for hematuria. Please see further orders. Cardiology will be consulted.
--- NOTE | 2016-11-24 23:03 | NM ---
EXAMINATION TYPE: NM pul vent and perfuse DATE OF EXAM: 11/24/2016 10:45 PM COMPARISON: Chest x-rays 11/24/2016. HISTORY: Rule out PE TECHNIQUE: Utilizing inhalation of 66.4 mCi Tc 99m DTPA aerosol and intravenous injection of 5.5 mCi of Tc 99m MAA, ventilation and perfusion images are acquired post injection in multiple projections. FINDINGS: Normal radiotracer distribution is noted in the lungs. There is no evidence of mismatched defects. IMPRESSION: There is a low probability for acute pulmonary embolism.
[2016-11-25] MEDS: NITROGLYCERIN OINT 1 INCH/GM PACKET TOPICAL SCH (04:37)
[2016-11-25 07:23] LABS: Cholesterol 183 mg/dL (<200); HDL Cholesterol 25 mg/dL (40-60); Triglycerides 124 mg/dL (<150)
[2016-11-25 08:13] VITALS: BP 196/94; PULSE 72; RESP 18; TEMP 97.8
[2016-11-25] MEDS: GABAPENTIN 300 MG CAP PO SCH (08:47)
[2016-11-25] MEDS: LISINOPRIL 10 MG TAB PO SCH (08:47)
[2016-11-25] MEDS: ALLOPURINOL 100 MG TAB PO SCH (08:47)
[2016-11-25] MEDS: CLOPIDOGREL 75 MG TAB PO SCH (08:48)
[2016-11-25] MEDS ORDERED: amLODIPine 5 MG TAB PO SCH (09:00)
[2016-11-25] MEDS ORDERED: ISOSORBIDE MONONITRATE ER 30 MG TAB.ER.24H PO SCH (09:00)
[2016-11-25] MEDS ORDERED: ASPIRIN 325 MG TAB PO SCH (09:00)
[2016-11-25] MEDS ORDERED: ATENOLOL 50 MG TAB PO SCH (09:00)
[2016-11-25] MEDS ORDERED: APIXABAN 2.5 MG TABLET PO SCH (09:00)
--- NOTE | 2016-11-25 09:37 | CONS ---
DATE OF CONSULTATION: CHIEF COMPLAINT: Chest pain. Talat is an 89-year-old gentleman with history of coronary artery disease, status post CABG, sick sinus syndrome, status post permanent pacemaker placement who presented to the hospital complaining of right-sided chest discomfort with right arm pain. It came on suddenly at rest, moderate intensity, unrelated to exertion and associated with diaphoresis. He did not have any symptoms and the symptoms have resolved spontaneously. His EKG initially showed sinus rhythm. Subsequent EKG showed atrial fibrillation. He has had labs D-dimer is elevated at 12.2. Three sets of troponins are negative. He went on to have a V/Q scan because of the elevated D-dimer which had been reported as being low probability for pulmonary embolism. At the time of my evaluation, patient is comfortable at rest and wants to go home. I advised him to have a stress test done. He does not want to have any workup done at this time but will go home and pursue the issue with his wallboard worker, Dr. Connor, and his primary care physician, Dr. Wilber Ervin. Patient is in new onset A. fib. I am going to start him on Eliquis 2.5 b.i.d. and he will be followed up as outpatient and further workup will be pursued. Past medical history is significant for CAD, status post CABG, hypertension. Medications include Neurontin 600 t.i.d., lisinopril 10 q. daily, Plavix 75 q. daily, Allopurinol and Xanax. ALLERGIES: There are no known drug allergies. FAMILY HISTORY: Negative for premature coronary artery disease. SOCIAL HISTORY: Negative for smoking, EtOH abuse or drug abuse. REVIEW OF SYSTEMS: HEENT: Unremarkable. CARDIAC: As described above. RESPIRATORY: Negative. GI: Negative. GENITOURINARY: Negative. ALLERGY/IMMUNOLOGICAL: Negative. MUSCULOSKELETAL: Significant for arthritis. PSYCHOSOCIAL: Negative. ENDOCRINE: Negative. DERMATOLOGY: Negative. CONSTITUTIONAL: Negative. ONCOLOGICAL: Negative. The rest of the system review is not relevant. On exam, afebrile. Heart rate is 70 beats per minute. Blood pressure 190/94. Respiratory rate is 18. There is no jugular venous distention. Chest exam reveals good air entry bilaterally. Heart exam reveals first and second heart sounds. An ejection systolic murmur in the aortic area. Abdomen is soft. Exam of the extremities did not reveal edema. Peripheral pulses are felt. Labs show cardiac enzymes are negative. Troponin is elevated. BUN is up at 36. Creatinine is 1.9. Potassium is 5. Hemoglobin is 12.2. ASSESSMENT: 1. Unstable angina. 2. Uncontrolled hypertension. 3. Coronary artery disease, status post coronary artery bypass grafting. 4. Elevated D-dimer. 5. New onset atrial fibrillation. PLAN: I am going to start him on a Eliquis for long-term anticoagulation. Discussed risks, benefits. He needs evaluation for ischemic heart disease. I am going to set him up for a stress test as outpatient as per his wishes. In the meantime, will start him on Imdur 30 mg daily, Tenormin 50 mg daily for more optimal control of his blood pressure and for antianginal effect, Norvasc 5 mg daily and continue his current medications. He will be followed up through our office over the next one week and will further optimize his medical therapy.
--- NOTE | 2016-11-25 11:29 | P.DS ---
Providers Date of admission: 11/24/16 11:01 Expected date of discharge: 11/25/16 Attending physician: Wilber Bautista Consults: Cardiology Dr. Shirley Primary care physician: Wilber Bautista [facility] Course: 89-year-old who presented on the day of admission to the emergency room with a chief complaint of chest discomfort. Stated it radiated down the right shoulder. No nausea no vomiting denies any abdominal pain patient described as a tightness. Patient denies any recent cough fever or chills. Patient denies any dizziness lightheadedness. Denies any recent injury or trauma. Patient does have a history of coronary artery disease prior coronary artery bypass grafting with prior coronary stenting. Subsequently the patient was admitted to the services of the attending. Cardiology consultation was requested patient 's 12-lead EKG on admission initially showed sinus rhythm subsequent EKG showed atrial fibrillation. Patient's d-dimer was elevated at 12. 3 sets of cardiac enzymes were negative. Patient had a VQ scan because of the elevated d-dimer which showed low probability of pulmonary emboli. Cardiology recommended the patient have a stress test done. Patient did not want to have any workup done at this time he wanted to go home in fact was adamant about going home he would talk it over with his primary floor space allocator Dr. murphy. Patient was advised he had new onset atrial fibrillation. Cardiology recommended elquist 2.5 twice a day and follow-up in the outpatient setting cardiology recommended the patient be started on Tenormin and Norvasc. Patient was anxious to be discharged and was discharged on the November Impression discharge diagnosis Present on admission chest pain atypical features no evidence of acute coronary syndrome cardiac enzymes 3 sets negative New onset paroxysmal atrial fibrillation rate controlled converted to sinus Known coronary artery disease prior coronary artery bypass grafting Hypertension Present on admission elevated d-dimer with the VQ scan low probability of pulmonary emboli Dyslipidemia Hypertension urgency present on admission Chronic renal failure GFR stage 3 Mild hyperkalemia present on admission The above dictated assessment and findings were discussed with dr bautista . Impression and the plan of care have been dictated as directed. Ronit Koo nurse practitioner acting as a scribe for dr bautista Plan - Discharge Summary New Discharge Prescriptions: Apixaban [Eliquis] 2.5 mg PO BID #60 tablet Atenolol [Tenormin] 50 mg PO DAILY #30 tab Isosorbide Mononitrate ER [Imdur] 30 mg PO DAILY #30 tab.er.24h amLODIPine [Norvasc] 5 mg PO DAILY #30 tab Discharge Medication List ALPRAZolam [Xanax] 0.5 mg PO BID PRN 07/07/16 [History] Allopurinol 100 mg PO DAILY 07/07/16 [History] Clopidogrel Bisulfate [Plavix] 75 mg PO DAILY 07/07/16 [History] Lisinopril 10 mg PO DAILY 07/07/16 [History] Nitroglycerin Sl Tabs [Nitrostat] 0.4 mg SUBLINGUAL Q5M PRN 08/31/16 [History] Gabapentin [Neurontin] 600 mg PO TID 10/15/16 [History] Apixaban [Eliquis] 2.5 mg PO BID #60 tablet 11/25/16 [Rx] Atenolol [Tenormin] 50 mg PO DAILY #30 tab 11/25/16 [Rx] Isosorbide Mononitrate ER [Imdur] 30 mg PO DAILY #30 tab.er.24h 11/25/16 [Rx] Nitroglycerin Sl Tabs [Nitrostat] 0.4 mg SUBLINGUAL Q5M PRN #0 tab 11/25/16 [Rx] amLODIPine [Norvasc] 5 mg PO DAILY #30 tab 11/25/16 [Rx] Follow up Appointment(s)/Referral(s): Wilber Bautista MD [Primary Care Provider] - 1-2 days (Appointment has been made for Wednesday at 9:[address] Bautista.) Usman Connor MD [STAFF PHYSICIAN] - 1 Week ([facility] office , will call patient with appointment date and time.) Ambulatory/Diagnostic Orders: Comprehensive Metabolic Panel [LAB.AMB] Time Frame: 12/01/16, Location: Determined By Patient Activity/Diet/Wound Care/Special Instructions: Eliquis filled at [facility], free 1 month supply and refills will be $ 2 copay Discharge Disposition: HOME SELF-CARE
== END 2016-11-25 11:40 | disposition home or self-care (01) ==
LOC: EC 08:55 → 3OBS 11:01
PROVIDERS: ADMIT Family Medicine; ATTEND Family Medicine
DX: R07.89 Other chest pain (principal); I48.0 Paroxysmal atrial fibrillation; I12.9 Hypertensive chronic kidney disease with stage 1 through stage 4 chronic kidney disease, or unspecified chronic kidney disease; N18.3 Chronic kidney disease, stage 3 (moderate); I25.10 Atherosclerotic heart disease of native coronary artery without angina pectoris; E78.5 Hyperlipidemia, unspecified; E87.5 Hyperkalemia; H40.9 Unspecified glaucoma; H91.90 Unspecified hearing loss, unspecified ear; M10.9 Gout, unspecified; R31.9 Hematuria, unspecified; Z79.899 Other long term (current) drug therapy; Z87.891 Personal history of nicotine dependence; Z95.0 Presence of cardiac pacemaker; Z95.1 Presence of aortocoronary bypass graft; Z95.5 Presence of coronary angioplasty implant and graft; F41.9 Anxiety disorder, unspecified; Z79.02 Long term (current) use of antithrombotics/antiplatelets
CPT/HCPCS: 36415; 93005; 85379; 80061; 80053; 84443; 82550; 82553; 83735; 84484; 85025; 85610; 85730; 81001; 71020; 76770; 78582; 99285; G0378 ×2; A9540; A9567